=== PATIENT | male | born 1970 | race African-American/Black ===

== ENCOUNTER 2016-08-13 14:02 | Emergency (ER) | payer OTHER ==
[~2016-08-13] VITALS: Ht 177.8 cm; Wt 67.1 kg
[~2016-08-13 14:02] MED LIST: NOHOMEMEDICATIONS; ZOFRAN ODT4 MG PO
[2016-08-13] MEDS ORDERED: PREDNISONE 20 M20 MG PO (14:52)
[2016-08-13] MEDS ORDERED: CYCLOBENZAPRINE5 MG PO (14:52)
[2016-08-13] MEDS ORDERED: NORCO 5-325 TA1 EACH PO (15:10)
[2016-08-13 15:18] VITALS: BP 139/102
== END 2016-08-13 15:19 | disposition home or self-care (01) ==
LOC: ER 14:02
DX: M54.5 Low back pain (principal)

== ENCOUNTER 2016-08-30 10:30 | Emergency (ER) | payer OTHER ==
[~2016-08-30] VITALS: Ht 180.3 cm; Wt 68.0 kg
[~2016-08-30 10:30] MED LIST changes: +CYCLOBENZAPRINE5 MG PO; +NORCO 5-325 TA1 EACH PO; +PREDNISONE 20 M20 MG PO
[2016-08-30] MEDS ORDERED: CENTRUM SILVER1 EAC2 PO (10:53)
[2016-08-30] MEDS ORDERED: VITAMIN B-12500 MCG PO (10:53)
[2016-08-30] MEDS ORDERED: HYDROCHLOROTH12.5 M1 PO (10:53)
[2016-08-30 11:10] LABS: HEMATOCRIT 38.8 % (42.0-52.0); HEMOGLOBIN 13.2 gm/dL (14.0-18.0); MCH 30.2 pg (26.0-34.0); MCV 88.9 fL (80.0-100.0); RBC 4.36 mil/uL (4.50-6.00); RDW 14.7 % (10.5-14.5); WBC 3.4 thou/uL (4.0-11.0)
[2016-08-30] MEDS ORDERED: NAPROSYN500 MG PO (11:11)
[2016-08-30] MEDS ORDERED: PERCOCET 5-3251 EACH PO (11:11)
[2016-08-30 11:20] LABS: CREATININE 1.3 mg/dL (0.7-1.3); POTASSIUM 3.7 mmol/L (3.5-5.1)
[2016-08-30 11:24] LABS: ALBUMIN 4.2 g/dL (3.4-5.0); TOTAL BILIRUBIN 0.5 mg/dL (<0.1-1.0); TOTAL PROTEIN 7.7 g/dL (6.4-8.2)
[2016-08-30 12:10] LABS: URINE BILIRUBIN NEGATIVE (Negative); URINE BLOOD NEGATIVE (Negative); URINE COLOR YELLOW; URINE GLUCOSE-RANDOM* NEGATIVE (Negative); URINE KETONES NEGATIVE (Negative); URINE LEUKOCYTES-REFLEX NEGATIVE (Negative); URINE PROTEIN (DIPSTICK) NEGATIVE (Negative); URINE UROBILINOGEN 0.2 E.U./dl (0.2-1.0)
[2016-08-30 13:09] VITALS: BP 152/89
== END 2016-08-30 13:11 | disposition home or self-care (01) ==
LOC: ER 10:30
PROVIDERS: Emergency Medicine
DX: M54.41 Lumbago with sciatica, right side (principal); Z91.19 Patient's noncompliance with other medical treatment and regimen

== ENCOUNTER 2016-09-13 13:33 | Emergency (ER) | payer OTHER ==
[~2016-09-13] VITALS: Ht 177.8 cm; Wt 72.6 kg
[~2016-09-13 13:33] MED LIST changes: +CENTRUM SILVER1 EAC2 PO; +HYDROCHLOROTH12.5 M1 PO; +NAPROSYN500 MG PO; +PERCOCET 5-3251 EACH PO; +VITAMIN B-12500 MCG PO
[2016-09-13] MEDS ORDERED: MOBIC7.5 MG PO (15:04)
[2016-09-13] MEDS ORDERED: NORFLEX100 MG PO (15:04)
[2016-09-13] MEDS ORDERED: PREDNISONE 20 M20 MG PO (15:04)
[2016-09-13 15:28] VITALS: BP 151/92
== END 2016-09-13 15:29 | disposition home or self-care (01) ==
LOC: ER 13:33
DX: M54.41 Lumbago with sciatica, right side (principal)

== ENCOUNTER 2017-10-25 18:41 | Emergency (ER) | payer OTHER ==
[~2017-10-25] VITALS: Ht 180.3 cm; Wt 90.7 kg
[~2017-10-25 18:41] MED LIST changes: +MOBIC7.5 MG PO; +NORFLEX100 MG PO
[2017-10-25 18:58] VITALS: BP 141/91
[2017-10-25] MEDS ORDERED: IBUPROFEN 600600 M1 PO (19:28)
[2017-10-25] MEDS ORDERED: HYDROCODONE-AP1 EAC6 PO (19:28)
== END 2017-10-25 19:30 | disposition home or self-care (01) ==
LOC: ER 18:41
DX: K02.9 Dental caries, unspecified (principal)